=== PATIENT | female | born 1970 | race Caucasian/White ===

== ENCOUNTER 2018-06-02 05:40 | Inpatient (IN) | payer OTHER ==
[~2018-06-02] VITALS: Ht 152.4 cm; Wt 50.8 kg
[2018-06-02] MEDS ORDERED: SODIUM CHLORIDE 0.9% 1,000 ML IV ONE (06:27)
[2018-06-02] MEDS ORDERED: ONDANSETRON HCL 4MG/2ML INJ IV STA (06:27)
[2018-06-02] MEDS ORDERED: LORAZEPAM 2MG/ML CPJ IV ONE (06:30)
[2018-06-02 07:17] LABS: HEMATOCRIT. 39.8 % (36.0-48.0); HEMOGLOBIN. 13.6 g/dL (12.0-16.0); MEAN CORPUSCULAR HEMOGLOBIN 34.3 pg (28.0-32.0); MEAN CORPUSCULAR VOLUME 100.2 fL (81.0-99.0); MEAN PLATELET VOLUME 10.7 fl (7.4-10.4); PLATELET 110 x1000/uL (130-400); RED BLOOD CELL COUNT 3.97 mill/uL (4.2-5.4); RED CELL DISTRIBUTION WIDTH 14.4 % (11.6-14.6)
[2018-06-02 07:18] LABS: CHLORIDE 85 mEq/L (98-107)
[2018-06-02 07:24] LABS: ETHANOL BLOOD < 10 mg/dL
[2018-06-02 08:25] LABS: PLATELET ESTIMATE SLIGHTLY DECREASED
[2018-06-02] MEDS ORDERED: METOCLOPRAMIDE HCL 10MG/2ML VIAL IV ONE (09:15)
[2018-06-02 09:22] LABS: CLARITY URINE TURBID (CLEAR); COLOR URINE DARK YELLOW (YELLOW); KETONES URINE 1+ (NEGATIVE); LEUKOCYTE ESTERASE URINE 3+ (NEGATIVE); NITRITE URINE NEGATIVE (NEGATIVE); OCCULT BLOOD URINE 2+ (NEGATIVE); PROTEIN URINE 2+ (NEGATIVE); SPECIFIC GRAVITY URINE 1.026 (1.005-1.030)
[2018-06-02 09:49] LABS: *AMPHETAMINES SCREEN URINE NEGATIVE (NEGATIVE); *BENZODIAZEPINES SCREEN URINE NEGATIVE (NEGATIVE); *COCAINE SCREEN URINE NEGATIVE (NEGATIVE); CANNABINOID URINE SCREEN NEGATIVE (NEGATIVE); METHADONE URINE SCREEN NEGATIVE (NEGATIVE); OPIATES URINE SCREEN NEGATIVE (NEGATIVE)
[2018-06-02 09:50] LABS: PHENCYCLIDINE URINE SCREEN NEGATIVE (NEGATIVE)
[2018-06-02 09:56] LABS: *BARBITURATES SCREEN URINE NEGATIVE (NEGATIVE)
[2018-06-02] MEDS ORDERED: FOLIC ACID 1 MG, THIAMINE HCL 100 MG, MVI, ADULT NO.1 10 ML in DEXTROSE 5% WATER 1,000 ML IV SCH ×8 (10:15→11:00)
[2018-06-02] MEDS ORDERED: LORAZEPAM 2MG/ML CPJ IV PRN (10:15)
[2018-06-02] MEDS ORDERED: ACETAMINOPHEN 325MG TABLET PO PRN (10:15)
[2018-06-02] MEDS ORDERED: ONDANSETRON HCL 4MG/2ML INJ IV PRN (10:15)
[2018-06-02] MEDS ORDERED: CEFTRIAXONE 1 G PREMIX 50 ML IV SCH (10:45)
[2018-06-02 14:20] VITALS: BP 127/83
[2018-06-02 14:35] VITALS: BP 127/83
[2018-06-02 17:00] VITALS: BP 119/71
[2018-06-02 18:31] VITALS: BP 119/71
[2018-06-03] MEDS ORDERED: OMEPRAZOLE 20MG CAPSULE EXTENDED RELEASE PO SCH (07:40)
[2018-06-03] MEDS ORDERED: FOLIC ACID 1 MG, THIAMINE HCL 100 MG, MVI, ADULT NO.1 10 ML in DEXTROSE 5% WATER 1,000 ML IV SCH ×4 (09:00)
[2018-06-03] MEDS ORDERED: CEFTRIAXONE 1 G PREMIX 50 ML IV SCH (10:15)
== END 2018-06-02 21:10 | disposition left against medical advice (07) | DRG 720 ==
LOC: ER 05:40 → 7WST 09:25 → ENRESERV 12:27 → UNDODISIN 18:25
PROVIDERS: ADMIT Internal Medicine; ATTEND Internal Medicine
DX: A41.9 Sepsis, unspecified organism (principal); E87.8 Other disorders of electrolyte and fluid balance, not elsewhere classified; D69.6 Thrombocytopenia, unspecified; E87.1 Hypo-osmolality and hyponatremia; E87.5 Hyperkalemia; K74.60 Unspecified cirrhosis of liver; F10.20 Alcohol dependence, uncomplicated; K29.20 Alcoholic gastritis without bleeding; N39.0 Urinary tract infection, site not specified
CPT/HCPCS: 36415; 73630; 74176; 80305; 87077; 87186; 93970; 97161; 99285; G0482; J0696; J2060; J2405; J2765; J3411; J3490; J7030; J7070

== ENCOUNTER 2018-08-26 08:40 | Emergency (ER) | payer OTHER ==
[~2018-08-26] VITALS: Ht 152.4 cm; Wt 48.0 kg
[2018-08-26] MEDS ORDERED: SODIUM CHLORIDE 0.9% 1,000 ML IV ONE (09:24)
[2018-08-26] MEDS ORDERED: ONDANSETRON HCL 4MG/2ML INJ IV STA (09:24)
[2018-08-26] MEDS ORDERED: MAGNESIUM/ALUMINUM HYDROXIDE/SIMETHICONE 30ML UDC PO STA (09:24)
[2018-08-26] MEDS ORDERED: KETOROLAC 15MG/ML VIAL IV ONE (09:30)
[2018-08-26 09:34] LABS: BASOPHILS % 0.8 % (0.0-2.0); EOSINOPHILS % 0.9 % (0.0-5.0); HEMATOCRIT. 37.4 % (36.0-48.0); HEMOGLOBIN. 12.7 g/dL (12.0-16.0); LYMPHOCYTES % 12.8 % (20.0-50.0); MEAN CORPUSCULAR HEMOGLOBIN 34.3 pg (28.0-32.0); MEAN CORPUSCULAR VOLUME 101.2 fL (81.0-99.0); MEAN PLATELET VOLUME 6.9 fl (7.4-10.4); MONOCYTES % 4.4 % (2.0-8.0); NEUTROPHILS % 81.1 % (40.0-76.0); PLATELET 215 x1000/uL (130-400); RED BLOOD CELL COUNT 3.69 mill/uL (4.2-5.4); RED CELL DISTRIBUTION WIDTH 16.2 % (11.6-14.6)
[2018-08-26 09:41] LABS: CHLORIDE 104 mEq/L (98-107)
[2018-08-26 09:42] LABS: INR 1.1; PROTHROMBIN TIME 10.9 sec (9.1-11.1)
[2018-08-26 09:45] LABS: ETHANOL BLOOD 123 mg/dL
[2018-08-26] MEDS ORDERED: POTASSIUM CHLORIDE 20MEQ TABLET SR PO ONE (10:00)
[2018-08-26] MEDS ORDERED: CHLORDIAZEPOXIDE 25MG CAPSULE PO ONE (10:00)
[2018-08-26 11:28] LABS: *BARBITURATES SCREEN URINE NEGATIVE (NEGATIVE); *COCAINE SCREEN URINE NEGATIVE (NEGATIVE); METHADONE URINE SCREEN NEGATIVE (NEGATIVE)
[2018-08-26 11:29] LABS: CANNABINOID URINE SCREEN NEGATIVE (NEGATIVE); OPIATES URINE SCREEN NEGATIVE (NEGATIVE); PHENCYCLIDINE URINE SCREEN NEGATIVE (NEGATIVE)
[2018-08-26 11:31] LABS: *AMPHETAMINES SCREEN URINE NEGATIVE (NEGATIVE); *BENZODIAZEPINES SCREEN URINE PRESUMTIVE POSITIVE (NEGATIVE)
[2018-08-26 12:15] VITALS: BP 129/81
[2018-08-26] MEDS ORDERED: METOCLOPRAMIDE HCL 10MG TABLET PO ONE (12:15)
== END 2018-08-26 12:37 | disposition home or self-care (01) ==
LOC: ER 08:40
DX: T51.0X1A Toxic effect of ethanol, accidental (unintentional), initial encounter (principal); R10.33 Periumbilical pain; R11.2 Nausea with vomiting, unspecified; Y92.89 Other specified places as the place of occurrence of the external cause
CPT/HCPCS: 36415; 74176; 80053; 80305; 80320; 81025; 83690; 85025; 85610; 96361; 96374; 96375; 99284; J1885; J2405; J7030; J8597; G0480

== ENCOUNTER 2018-10-11 15:20 | Emergency (ER) | payer OTHER ==
[~2018-10-11] VITALS: Ht 152.4 cm; Wt 44.0 kg
[2018-10-11] MEDS ORDERED: SODIUM CHLORIDE 0.9% 1,000 ML IV ONE (17:44)
[2018-10-11] MEDS ORDERED: ONDANSETRON HCL 4MG/2ML INJ IV STA (17:44)
[2018-10-11] MEDS ORDERED: MAGNESIUM/ALUMINUM HYDROXIDE/SIMETHICONE 30ML UDC PO STA (17:44)
[2018-10-11 18:21] LABS: BASOPHILS % 0.7 % (0.0-2.0); EOSINOPHILS % 0.1 % (0.0-5.0); HEMATOCRIT. 40.3 % (36.0-48.0); HEMOGLOBIN. 13.5 g/dL (12.0-16.0); LYMPHOCYTES % 10.4 % (20.0-50.0); MEAN CORPUSCULAR HEMOGLOBIN 34.6 pg (28.0-32.0); MEAN CORPUSCULAR VOLUME 103.5 fL (81.0-99.0); MEAN PLATELET VOLUME 8.1 fl (7.4-10.4); MONOCYTES % 2.4 % (2.0-8.0); NEUTROPHILS % 86.4 % (40.0-76.0); PLATELET 165 x1000/uL (130-400); RED CELL DISTRIBUTION WIDTH 13.8 % (11.6-14.6)
[2018-10-11 18:22] LABS: CHLORIDE 96 mEq/L (98-107)
[2018-10-11 18:26] LABS: ETHANOL BLOOD 153 mg/dL
[2018-10-11 20:00] VITALS: BP 145/88
[2018-10-11] MEDS ORDERED: CHLORDIAZEPOXIDE 25MG CAPSULE PO ONE (20:00)
[2018-10-11] MEDS ORDERED: ONDANSETRON 4MG ODT PO ONE (20:45)
== END 2018-10-11 20:52 | disposition home or self-care (01) ==
LOC: ER 15:20
DX: T51.0X1A Toxic effect of ethanol, accidental (unintentional), initial encounter (principal); R10.13 Epigastric pain; F10.129 Alcohol abuse with intoxication, unspecified; Y90.6 Blood alcohol level of 120-199 mg/100 ml; Y92.89 Other specified places as the place of occurrence of the external cause
CPT/HCPCS: 36415; 80053; 80320; 83690; 85025; 96361; 96374; 99284; J2405; J7030; Q0162; Z7610; G0480

== ENCOUNTER 2018-12-10 08:59 | Emergency (ER) | payer OTHER ==
[~2018-12-10] VITALS: Ht 152.4 cm; Wt 44.0 kg
[2018-12-10] MEDS ORDERED: SODIUM CHLORIDE 0.9% 1,000 ML IV ONE ×2 (09:32→11:27)
[2018-12-10] MEDS ORDERED: ONDANSETRON HCL 4MG/2ML INJ IV STA ×2 (09:32→10:46)
[2018-12-10] MEDS ORDERED: KETOROLAC 30MG/ML VIAL IV STA (09:32)
[2018-12-10] MEDS ORDERED: FAMOTIDINE 20MG/2ML VIAL IV ONE (09:45)
[2018-12-10 10:01] LABS: BASOPHILS % 1.3 % (0.0-2.0); EOSINOPHILS % 0.5 % (0.0-5.0); HEMATOCRIT. 37.2 % (36.0-48.0); HEMOGLOBIN. 12.7 g/dL (12.0-16.0); LYMPHOCYTES % 24.1 % (20.0-50.0); MEAN CORPUSCULAR VOLUME 102.5 fL (81.0-99.0); MEAN PLATELET VOLUME 7.5 fl (7.4-10.4); MONOCYTES % 5.9 % (2.0-8.0); NEUTROPHILS % 68.2 % (40.0-76.0); PLATELET 230 x1000/uL (130-400); RED BLOOD CELL COUNT 3.62 mill/uL (4.2-5.4); RED CELL DISTRIBUTION WIDTH 14.5 % (11.6-14.6)
[2018-12-10 10:09] LABS: CHLORIDE 102 mEq/L (98-107)
[2018-12-10 10:14] LABS: ETHANOL BLOOD 128 mg/dL
[2018-12-10 11:07] LABS: CLARITY URINE CLOUDY (CLEAR); COLOR URINE YELLOW (YELLOW); KETONES URINE TRACE (NEGATIVE); LEUKOCYTE ESTERASE URINE 3+ (NEGATIVE); NITRITE URINE NEGATIVE (NEGATIVE); OCCULT BLOOD URINE 1+ (NEGATIVE); PH URINE 7.5 (4.5-8.0); PROTEIN URINE 1+ (NEGATIVE); SPECIFIC GRAVITY URINE 1.018 (1.005-1.030); UROBILINOGEN URINE 0.2 E.U./dL (0.2-1.0)
[2018-12-10] MEDS ORDERED: CEFTRIAXONE 1 G PREMIX 50 ML IV ONE (11:30)
[2018-12-10] MEDS ORDERED: LORAZEPAM 2MG/ML CPJ IV ONE (11:30)
[2018-12-10] MEDS ORDERED: ONDANSETRON HCL 4MG/2ML INJ IV ONE (11:30)
[2018-12-10 12:55] VITALS: BP 127/81
== END 2018-12-10 13:28 | disposition home or self-care (01) ==
LOC: ER 08:59
DX: K29.20 Alcoholic gastritis without bleeding (principal); F10.10 Alcohol abuse, uncomplicated; N39.0 Urinary tract infection, site not specified; Y90.9 Presence of alcohol in blood, level not specified
CPT/HCPCS: 36415; 80053; 80320; 81003; 83690; 85025; 96361; 96365; 96375; 99283; J0696; J1885; J2060; J2405; J3490; J7030; G0480

== ENCOUNTER 2019-02-04 06:08 | Emergency (ER) | payer OTHER ==
[~2019-02-04] VITALS: Ht 152.4 cm; Wt 48.0 kg
[2019-02-04] MEDS ORDERED: SODIUM CHLORIDE 0.9% 1,000 ML IV ONE (07:22)
[2019-02-04] MEDS ORDERED: ONDANSETRON HCL 4MG/2ML INJ IV STA (07:22)
[2019-02-04 08:19] LABS: BASOPHILS % 0.2 % (0.0-2.0); EOSINOPHILS % 0.2 % (0.0-5.0); HEMATOCRIT. 25.5 % (36.0-48.0); HEMOGLOBIN. 8.6 g/dL (12.0-16.0); LYMPHOCYTES % 8.4 % (20.0-50.0); MEAN CORPUSCULAR HEMOGLOBIN 33.5 pg (28.0-32.0); MEAN CORPUSCULAR VOLUME 99.3 fL (81.0-99.0); MEAN PLATELET VOLUME 7.1 fl (7.4-10.4); MONOCYTES % 3.3 % (2.0-8.0); NEUTROPHILS % 87.9 % (40.0-76.0); PLATELET 264 x1000/uL (130-400); RED BLOOD CELL COUNT 2.57 mill/uL (4.2-5.4); RED CELL DISTRIBUTION WIDTH 14.9 % (11.6-14.6)
[2019-02-04 08:21] LABS: CHLORIDE 103 mEq/L (98-107)
[2019-02-04 08:54] LABS: CLARITY URINE CLOUDY (CLEAR); COLOR URINE YELLOW (YELLOW); KETONES URINE NEGATIVE (NEGATIVE); LEUKOCYTE ESTERASE URINE 3+ (NEGATIVE); NITRITE URINE NEGATIVE (NEGATIVE); OCCULT BLOOD URINE TRACE (NEGATIVE); PH URINE 6.5 (4.5-8.0); PROTEIN URINE NEGATIVE (NEGATIVE); SPECIFIC GRAVITY URINE 1.013 (1.005-1.030); UROBILINOGEN URINE 0.2 E.U./dL (0.2-1.0)
[2019-02-04] MEDS ORDERED: POTASSIUM CHLORIDE 20MEQ TABLET SR PO ONE (09:15)
[2019-02-04 10:07] LABS: *AMPHETAMINES SCREEN URINE NEGATIVE (NEGATIVE); *BARBITURATES SCREEN URINE NEGATIVE (NEGATIVE); *COCAINE SCREEN URINE NEGATIVE (NEGATIVE); CANNABINOID URINE SCREEN NEGATIVE (NEGATIVE); METHADONE URINE SCREEN NEGATIVE (NEGATIVE); OPIATES URINE SCREEN NEGATIVE (NEGATIVE); PHENCYCLIDINE URINE SCREEN NEGATIVE (NEGATIVE)
[2019-02-04 10:10] LABS: *BENZODIAZEPINES SCREEN URINE PRESUMTIVE POSITIVE (NEGATIVE)
[2019-02-04 11:15] VITALS: BP 118/75
== END 2019-02-04 11:15 | disposition short-term general hospital (02) ==
LOC: ER 06:08
DX: D64.9 Anemia, unspecified (principal); E87.6 Hypokalemia
CPT/HCPCS: 36415; 80053; 80305; 80320; 81003; 81025; 83690; 85025; 87086; 96374; 99285; J2405; J7030; G0480